=== PATIENT | female | born 1970 | race Caucasian/White ===

== ENCOUNTER 2017-01-31 13:09 | Outpatient (CLI) | payer OTHER ==
--- NOTE | 2017-02-01 12:15 | MMO ---
MAMMOGRAM DIGITAL SCREENING BILATERAL: DATE: 01/31/17 HISTORY: 46-year-old female for routine bilateral screening mammogram. COMPARISON: 03/15/12, 08/04/14, and 09/14/15. TECHNIQUE: Digital mammographic views. Computer-aided detection (CAD) utilized. FINDINGS: The breasts are heterogeneously dense, which may obscure small masses. There are bilateral biopsy clips, two on each side. There are several bilateral asymmetries and pilo s. Otherwise, there is no evidence of suspicious mass, suspicious calcifications, or architectural disto rtion. There is no significant interval change since the prior mammogram. IMPRESSION: 1. BIRADS 2 - benign. 2. Recommendation: routine bilateral annual screening mammogram (unless the patient develops suspici ous clinical findings that would warrant earlier imaging follow up). mai [] POS: [id number]
== END 2017-01-31 13:10 | disposition home or self-care (01) ==
LOC: SCSMAMMO 13:09
PROVIDERS: ATTEND Family Medicine
DX: Z12.31 Encounter for screening mammogram for malignant neoplasm of breast (principal)
CPT/HCPCS: 77067; G0202

== ENCOUNTER 2019-08-19 14:23 | Outpatient (CLI) | payer OTHER ==
--- NOTE | 2019-08-19 15:29 | RAD ---
EXAM: XR Abdomen 2 View/1 View Cxr PROVIDED CLINICAL HISTORY: Constipation COMPARISON: None FINDINGS: Cardiac and mediastinal silhouette is within normal limits. No focal consolidation, pleural fluid or pneumothorax apparent. Basilar calcification is demonstrated involving the aortic arch. Supine and upright abdominal radiographs demonstrate a nonspecific bowel gas pattern. No radiographically appare nt urinary tract calculi. No evidence for pneumoperitoneum. IMPRESSION: No evidence for an acute process.
== END 2019-08-19 14:24 | disposition home or self-care (01) ==
LOC: BICRAD 14:23
PROVIDERS: ATTEND Family Medicine
DX: K59.00 Constipation, unspecified (principal)
CPT/HCPCS: 74022

== ENCOUNTER 2020-01-21 13:30 | Outpatient (CLI) | payer OTHER ==
[~2020-01-21 13:30] MED LIST: Iopamidol 370 76% 100 ML VIAL ONE
--- NOTE | 2020-01-21 18:52 | CT ---
CT ABDOMEN AND PELVIS PERFORMED WITH CONTRAST ENHANCEMENT: 01/21/20 HISTORY: Abdominal pain and bloating. Occasional right lower quadrant pain. The lung bases are clear of any infiltrative process. The liver, spleen, pancreas, and gallbladder regions all appear unremarkable. Right and left adrenal glands and right and left kidneys are normal in size. There is a small exophyt ic hypodensity involving the upper pole of the left kidney. Statistically this is most likely a small cyst but difficult to characterize due to its small size. There is no significant periaortic or mese nteric lymphadenopathy. No bowel wall abnormalities. CT OF PELVIS PERFORMED WITH CONTRAST ENHANCEMENT: The appendix is normal. Small ileocolic lymph nodes are seen. Minimal sigmoid diverticulosis present. No pelvic lymphadenopathy or mass. No concerning lytic or blastic bony changes. IMPRESSION: 1. Minimal sigmoid diverticulosis. 2. Normal appendix. 3. Probable small subcentimeter left renal cyst. POS: CHLOE
== END 2020-01-21 13:31 | disposition home or self-care (01) ==
LOC: BICCT 13:30
PROVIDERS: ATTEND Internal Medicine Gastroenterology
DX: K21.9 Gastro-esophageal reflux disease without esophagitis (principal); R10.31 Right lower quadrant pain; R63.5 Abnormal weight gain; K57.30 Diverticulosis of large intestine without perforation or abscess without bleeding
CPT/HCPCS: 74177

== ENCOUNTER 2021-07-30 14:13 | Emergency (ER) | payer OTHER ==
[~2021-07-30 14:13] MED LIST changes: +ISOVUE-370 76%-LOCM 1 ML ONE; -Iopamidol 370 76% 100 ML VIAL ONE
[2021-07-30 14:39] LABS: #Basophils 0.1 thou/uL (0.0-0.2); #Eosinphils 0.1 thou/uL (0.0-0.7); #Lymphocytes 3.5 thou/uL (1.20-3.40); #Monocytes 0.8 thou/uL (0.11-0.59); #Neutrophils 3.4 thou/uL (1.40-6.50); %Eosinophils 0.9 % (0.0-10.0); %Lymphocytes 44.1 % (21.0-51.0); %Monocytes 10.1 % (0.0-10.0); %Neutrophils 43.8 % (42.0-75.0); Hemoglobin 13.5 g/dL (12.0-16.0); Mean Corpuscular HGB CONC 33.1 g/dL (32.0-36.0); Mean Corpuscular Hemoglobin 32.9 pg (27.0-31.0); Mean Corpuscular Volume 99.3 fL (78.0-98.0); Mean Platelet Volume 7.1 fL (7.4-10.4); Platelet Count 314 thou/uL (130-400); RBC Distribution Width 11.5 % (11.5-14.5); Red Blood Cell (RBC) Count 4.11 mill/uL (4.20-5.40); White Blood Cell (WBC) Count 7.9 thou/uL (4.8-10.8)
[2021-07-30 14:57] LABS: ALT (SGPT) 15 U/L (8-55); AST (SGOT) 14 U/L (5-34); Albumin 4.6 g/dL (3.5-5.0); Alkaline Phosphatase 61 U/L (40-110); Anion Gap 12 mmol/L (10-20); BUN (Urea Nitrogen) 10 mg/dL (9.8-20.1); Bilirubin, Total 0.6 mg/dL (0.2-1.2); Calc. Creatinine Clearance 0 mL/min (70-130); Calcium 9.7 mg/dL (7.8-10.44); Carbon Dioxide 26 mmol/L (22-29); Chloride 103 mmol/L (98-107); Globulin 2.9 g/dL (2.4-3.5); Glucose 90 mg/dL (70-105); Lipase 26 U/L (8-78); Protein, Total 7.5 g/dL (6.0-8.3); Sodium 137 mmol/L (136-145)
[2021-07-30 16:45] LABS: Bilirubin Negative (Negative); Blood, Urine Negative (Negative); Clarity Clear (Clear); Glucose, Urine (Dipstick) Normal (Negative); Ketone, Urine Negative (Negative); Leukocyte Negative Leu/uL (Negative); Nitrite Negative (Negative); Protein, Urine (Dipstick) Negative (Neg-Trace); Specific Gravity, Urine 1.007 (1.002-1.036); Urobilinogen Normal mg/dL (Less than 2)
== END 2021-07-30 20:25 | disposition home or self-care (01) ==
LOC: ERS 14:13
DX: R11.2 Nausea with vomiting, unspecified (principal); R19.7 Diarrhea, unspecified; Z87.442 Personal history of urinary calculi; Z79.899 Other long term (current) drug therapy
CPT/HCPCS: 74177; 76705; 80053; 81003; 83690; 85025; Q9966

== ENCOUNTER 2021-09-29 12:18 | Outpatient (CLI) | payer BC | END 2021-09-29 12:19 | disposition home or self-care (01) | LOC: BICMAMMO 12:18 | PROVIDERS: ATTEND Family Medicine | DX: Z12.31 Encounter for screening mammogram for malignant neoplasm of breast (principal); R92.1 Mammographic calcification found on diagnostic imaging of breast; Z91.89 Other specified personal risk factors, not elsewhere classified | CPT/HCPCS: 77063; 77067 ==

== ENCOUNTER 2021-12-27 10:28 | Outpatient (CLI) | payer BC | END 2021-12-27 10:29 | disposition home or self-care (01) | LOC: BICULT 10:28 | PROVIDERS: ATTEND Urology | DX: N28.1 Cyst of kidney, acquired (principal); N28.89 Other specified disorders of kidney and ureter | CPT/HCPCS: 76770 ==

== ENCOUNTER 2022-01-04 07:44 | Outpatient (CLI) | payer BC | END 2022-01-04 07:45 | disposition home or self-care (01) | LOC: CT 07:44 | PROVIDERS: ATTEND Urology | DX: N28.1 Cyst of kidney, acquired (principal) | CPT/HCPCS: 74170 ==

== ENCOUNTER 2022-03-17 11:59 | Outpatient (CLI) | payer BC ==
[2022-03-17 12:37] LABS: #Basophils 0.1 10x3/uL (0.0-0.2); #Eosinphils 0.1 10x3/uL (0.0-0.5); #Monocytes 0.6 10x3/uL (0.0-1.1); #Neutrophils 4.2 10x3/uL (1.5-8.4); %Basophils 0.6 % (0.0-2.0); %Eosinophils 0.8 % (0.0-6.0); %Lymphocytes 37.3 % (18.0-47.0); %Neutrophils 53.2 % (40.0-75.0); Hemoglobin 12.1 g/dL (12.0-15.5); Mean Corpuscular HGB CONC 33.2 g/dL (32.0-36.0); Mean Corpuscular Hemoglobin 31.7 pg (27.0-33.0); Mean Corpuscular Volume 95.3 fl (81.6-98.3); Mean Platelet Volume 10.2 fl (7.4-10.4); Platelet Count 323 10x3/uL (150-450); RBC Distribution Width 13.1 % (11.5-14.5); Red Blood Cell (RBC) Count 3.82 10x6/uL (3.90-5.03)
[2022-03-17 13:06] LABS: ALT (SGPT) 23 U/L (8-55); AST (SGOT) 18 U/L (5-34); Albumin 4.6 g/dL (3.5-5.0); Alkaline Phosphatase 60 U/L (40-110); Anion Gap 13 mmol/L (10-20); BUN (Urea Nitrogen) 17 mg/dL (9.8-20.1); Bilirubin, Total 0.3 mg/dL (0.2-1.2); Calc. Creatinine Clearance 0 mL/min (70-130); Calcium 9.4 mg/dL (7.8-10.44); Carbon Dioxide 25 mmol/L (22-29); Chloride 105 mmol/L (98-107); Estimated GFR 89; Globulin 2.4 g/dL (2.4-3.5); Glucose 93 mg/dL (70-105); Potassium 3.9 mmol/L (3.5-5.1); Sodium 139 mmol/L (136-145)
[2022-03-17 13:14] LABS: Bilirubin Neg (Negative); Blood, Urine Negative (Negative); Clarity Clear (Clear); Glucose, Urine (Dipstick) Normal (Negative); Ketone, Urine Negative (Negative); Leukocyte Negative (Negative); Nitrite Negative (Negative); Protein, Urine (Dipstick) Negative (Neg-Trace); Urobilinogen Normal mg/dL (Less than 2)
[2022-03-17 13:22] LABS: Bacteria/HPF 1+ HPF (None Seen); RBC/HPF 0-3 HPF (0-3); Squamous Epithelial 0-3 HPF (0-3); WBC/HPF 0-3 HPF (0-3)
[2022-03-17 13:24] LABS: INR-International Normal Ratio 0.9; Prothrombin Time 9.7 sec (9.5-12.1)
== END 2022-03-17 12:00 | disposition home or self-care (01) ==
LOC: LABBT 11:59
PROVIDERS: ATTEND Urology
DX: Z01.818 Encounter for other preprocedural examination (principal); N28.89 Other specified disorders of kidney and ureter
CPT/HCPCS: 71046; 80053; 81001; 85025; 85610; 85730; 87086; 93005; 93010

== ENCOUNTER 2022-03-17 12:00 | Inpatient (IN) | payer BC ==
[2022-03-28 10:55] VITALS: BMI 25.7
[2022-03-30] MEDS ORDERED: Fentanyl 250 MCG/5 ML VIAL ONE (06:44)
[2022-03-30] MEDS ORDERED: Bupivacaine HCl 0.5%/Epinephrine 1:200,000/PF 30 ml Vial ONE (06:51)
[2022-03-30] MEDS ORDERED: Indocyanine Green 25 MG/10 ML VIAL ONE (06:51)
[2022-03-30] MEDS ORDERED: Midazolam HCl 2 mg/2 ml Vial ONE (07:08)
[2022-03-30] MEDS ORDERED: Lidocaine 1% MPF 2 ML VIAL ONE (07:09)
[2022-03-30] MEDS ORDERED: Sodium Chloride 0.9% 100 ML ONE (07:13)
[2022-03-30] MEDS ORDERED: Levofloxacin 500 mg/D5W 100 ml Premix Bag ONE (07:13)
[2022-03-30] MEDS ORDERED: CEFAZOLIN 1 GM VIAL ONE (07:13)
[2022-03-30] MEDS ORDERED: Rocuronium Bromide 10 MG/ML (10ML VIAL) ONE (07:14)
[2022-03-30] MEDS ORDERED: Ondansetron PF 4 MG/2 ML Vial ONE ×2 (07:14→13:19)
[2022-03-30] MEDS ORDERED: PROPOFOL 200 MG/20 ML VIAL ONE (07:14)
[2022-03-30] MEDS ORDERED: Lidocaine 1% PF 5 ML VIAL ONE (07:14)
[2022-03-30] MEDS ORDERED: Dexamethasone 20 MG/5 ML VIAL ONE (07:14)
[2022-03-30] MEDS ORDERED: Metoprolol Tartrate 5 MG/5 ML VIAL ONE (07:14)
[2022-03-30] MEDS ORDERED: Albumin 5% 250 ML ONE (07:39)
[2022-03-30 08:11] LABS: SARS-CoV-2 NAA Rapid Test Not Detected (NotDetected)
[2022-03-30] MEDS ORDERED: Rocuronium Bromide 50 MG/5 ML VIAL ONE (10:34)
[2022-03-30] MEDS ORDERED: SUGAMMADEX SODIUM 200 MG/2 ML VIAL ONE (10:34)
[2022-03-30] MEDS ORDERED: Bupivacaine/Epinephrine 0.25% 30 ML VIAL ONE (11:21)
[2022-03-30] MEDS ORDERED: Fentanyl 100 MCG/2 ML VIAL ONE ×3 (12:01→13:21)
[2022-03-30] MEDS ORDERED: Ondansetron HCl/PF 4 MG/2 ML Vial IVP PRN (12:15)
[2022-03-30] MEDS ORDERED: Promethazine HCl 25 MG/ML VIAL IM/IV PRN (12:15)
[2022-03-30 13:14] LABS: #Lymphocytes 1.3 thou/uL (1.20-3.40); #Monocytes 0.3 thou/uL (0.11-0.59); %Basophils 0.2 % (0.0-1.0); %Eosinophils 0.1 % (0.0-10.0); %Lymphocytes 9.3 % (21.0-51.0); %Monocytes 2.4 % (0.0-10.0); Hemoglobin 10.9 g/dL (12.0-16.0); Mean Corpuscular HGB CONC 34.1 g/dL (32.0-36.0); Mean Corpuscular Hemoglobin 33.8 pg (27.0-31.0); Mean Platelet Volume 7.6 fL (7.4-10.4); Platelet Count 255 10x3/uL (130-400); RBC Distribution Width 11.6 % (11.5-14.5); Red Blood Cell (RBC) Count 3.23 mill/uL (4.20-5.40); White Blood Cell (WBC) Count 13.6 10x3/uL (4.8-10.8)
[2022-03-30 13:40] LABS: Anion Gap 10 mmol/L (10-20); BUN (Urea Nitrogen) 10 mg/dL (9.8-20.1); Calc. Creatinine Clearance 103 mL/min (70-130); Calcium 7.7 mg/dL (7.8-10.44); Carbon Dioxide 21 mmol/L (22-29); Chloride 113 mmol/L (98-107); Estimated GFR 104; Glucose 132 mg/dL (70-105); Sodium 140 mmol/L (136-145)
[2022-03-30] MEDS ORDERED: hydrALAZINE 20 MG/ML VIAL SLOW IVP PRN (14:07)
[2022-03-30] MEDS ORDERED: diphenhydrAMINE 25 MG CAP PO PRN (14:07)
[2022-03-30] MEDS ORDERED: Mag-Al 1200 mg/1200 mg/30 ML UDCUP PO PRN (14:07)
[2022-03-30] MEDS ORDERED: Ondansetron PF 4 MG/2 ML Vial IVP PRN (14:07)
[2022-03-30] MEDS ORDERED: Oxybutynin 5 MG TAB PO PRN (14:07)
[2022-03-30] MEDS ORDERED: oxyCODONE 5 MG TAB PO PRN ×2 (14:09)
[2022-03-30] MEDS ORDERED: Sodium Chloride 0.9% 1,000 ML IV SCH (14:15)
[2022-03-30] MEDS: CEFAZOLIN 1 GM in Sodium Chloride 0.9% 100 ML IVPB SCH (18:48)
[2022-03-30] MEDS: Acetaminophen 500 MG TAB PO SCH (18:51)
[2022-03-30] MEDS: traMADol HCl 50 MG TAB PO SCH (18:51)
[2022-03-30] MEDS ORDERED: Promethazine HCl 25 MG in Sodium Chloride 0.9% 50 ML IVPB PRN (19:21)
[2022-03-30] MEDS: Fentanyl 100 MCG/2 ML VIAL SLOW IVP PRN (21:02)
[2022-03-30] MEDS: Docusate 100 MG CAP PO SCH (21:16)
[2022-03-31] MEDS: CEFAZOLIN 1 GM in Sodium Chloride 0.9% 100 ML IVPB SCH ×2 (00:11→08:52)
[2022-03-31] MEDS: Acetaminophen 500 MG TAB PO SCH ×3 (00:30→12:01)
[2022-03-31] MEDS: traMADol HCl 50 MG TAB PO SCH ×3 (00:30→12:00)
[2022-03-31 06:27] LABS: #Lymphocytes 1.9 thou/uL (1.20-3.40); #Monocytes 0.9 thou/uL (0.11-0.59); #Neutrophils 8.7 thou/uL (1.40-6.50); %Basophils 0.4 % (0.0-1.0); %Eosinophils 0.1 % (0.0-10.0); %Lymphocytes 16.5 % (21.0-51.0); %Monocytes 7.9 % (0.0-10.0); %Neutrophils 75.1 % (42.0-75.0); Hemoglobin 11.4 g/dL (12.0-16.0); Mean Corpuscular HGB CONC 33.4 g/dL (32.0-36.0); Mean Corpuscular Volume 98.9 fl (78.0-98.0); Mean Platelet Volume 7.4 fL (7.4-10.4); Platelet Count 265 10x3/uL (130-400); RBC Distribution Width 11.7 % (11.5-14.5); Red Blood Cell (RBC) Count 3.46 mill/uL (4.20-5.40); White Blood Cell (WBC) Count 11.5 10x3/uL (4.8-10.8)
[2022-03-31] MEDS: Fentanyl 100 MCG/2 ML VIAL SLOW IVP PRN (06:35)
[2022-03-31 06:49] LABS: Anion Gap 10 mmol/L (10-20); BUN (Urea Nitrogen) 9 mg/dL (9.8-20.1); Calc. Creatinine Clearance 108 mL/min (70-130); Calcium 8.4 mg/dL (7.8-10.44); Carbon Dioxide 22 mmol/L (22-29); Chloride 111 mmol/L (98-107); Estimated GFR 105; Glucose 90 mg/dL (70-105); Potassium 3.7 mmol/L (3.5-5.1); Sodium 139 mmol/L (136-145)
[2022-03-31] MEDS: Docusate 100 MG CAP PO SCH (08:52)
[2022-03-31] MEDS ORDERED: Ascorbic Acid 500 mg Chewable Tablet PO SCH (09:00)
[2022-03-31] MEDS ORDERED: Multivitamin W/ Minerals 1 TAB PO SCH (09:00)
[2022-03-31 15:24] VITALS: BP 101/67; TEMP 98.3
== END 2022-03-31 15:25 | disposition home or self-care (01) | DRG 658 ==
LOC: SURG A 03-30 05:44
PROVIDERS: ADMIT Urology; ATTEND Urology
PROC: 0TB14ZZ Excision of Left Kidney, Percutaneous Endoscopic Approach (ICD-10-PCS; principal; 2022-03-30)
PROC: 8E0W4CZ Robotic Assisted Procedure of Trunk Region, Percutaneous Endoscopic Approach (ICD-10-PCS; 2022-03-30)
DX: C64.2 Malignant neoplasm of left kidney, except renal pelvis (principal); Z20.822 Contact with and (suspected) exposure to COVID-19; R11.2 Nausea with vomiting, unspecified; E78.5 Hyperlipidemia, unspecified; Z90.711 Acquired absence of uterus with remaining cervical stump; Z90.11 Acquired absence of right breast and nipple; Z82.3 Family history of stroke; Z80.9 Family history of malignant neoplasm, unspecified
CPT/HCPCS: 36415; 71045; 80048; 85025; 86850; 86900; 86901; 88307; C1713; C1776; J0690; J1100; J1642; J1956; J2250; J2405; J2550; J2704; J3010; J3490; J7050; P9045; U0002

== ENCOUNTER 2023-03-01 07:05 | Outpatient (CLI) | payer BC ==
[2023-03-01] MEDS ORDERED: Iopamidol-370 76% 500 ML MDV (1 ML CHARGE) ONE (13:39)
== END 2023-03-01 07:06 | disposition home or self-care (01) ==
LOC: BICCT 07:05
PROVIDERS: ATTEND Urology
DX: C64.2 Malignant neoplasm of left kidney, except renal pelvis (principal)
CPT/HCPCS: 71046; 74177; 82565; Q9967

== ENCOUNTER 2023-08-13 10:51 | Outpatient (CLI) | payer BC | END 2023-08-13 10:52 | disposition home or self-care (01) | LOC: ULT 10:51 | PROVIDERS: ATTEND Nurse Practitioner Family | DX: R10.11 Right upper quadrant pain (principal) | CPT/HCPCS: 76700 ==